=== PATIENT | female | born 1955 | race Caucasian/White ===

== ENCOUNTER 2018-12-18 16:02 | Emergency (ER) | payer BC ==
[2018-12-18 17:17] LABS: Absolute Lymphocytes (CBC) 3.3 K/uL (0.7-4.9); Absolute Monocytes 0.7 K/uL (0.1-1.3); Absolute Neutrophil 6.1 K/uL (1.8-8.0); Basophils % 0.6 % (0-1.3); Eosinophils % 1.6 % (0-4.4); Hematocrit 39.2 % (36.0-45.0); Lymphocytes % 32.4 % (15.3-44.8); MPV 8.3 fL (7.6-11.3); Monocytes % 6.3 % (3.3-12.3); RBC Red Blood Cell Count 4.22 M/uL (3.86-4.86)
[2018-12-18 17:34] LABS: ALT/SGPT 24 U/L (12-78); AST/SGOT 16 U/L (15-37); Albumin 3.9 g/dL (3.4-5.0); Alkaline Phosphatase 26 U/L (45-117); BUN Blood Urea Nitrogen 14 mg/dL (7-18); Bicarbonate 26 mmol/L (21-32); Bilirubin Direct 0.1 mg/dL (0-0.2); Bilirubin Total 0.5 mg/dL (0.2-1.0); Glucose Level 185 mg/dL (74-106); Lipase 411 U/L (73-393); Potassium 3.5 mmol/L (3.5-5.1); Protein, Total 7.4 g/dL (6.4-8.2); Sodium Level 140 mmol/L (136-145)
--- NOTE | 2018-12-18 18:07 | EDPHYS ---
Physician Documentation [facility] Name: Kennedi Castillo Age: 63 yrs Sex: Female : 1955 Arrival Date: 12/18/2018 Time: 16:06 Bed 18 Private MD: out of town, doctor ED Physician Carlos Turner HPI: 12/19 07:17 This 63 yrs old Female presents to ER via Wheelchair with complaints of Back kdr Pain. 07:17 The patient presents with abdominal pain in the epigastric area, in the upper abdomen. kdr The patient has chronic abdominal pain and pancreatitis. Has been seen by GI and was told to come to this ED to get a consult by Dr. Jasso. The patient has no new or concerning c/o at this time. She has had back pain but it has been associated/exacerbated by vomiting. She is in absolutely no acute distress and is unsure as to why she was sent to [facility] when all of her work has been done in [place]. Historical: - Allergies: 12/18 16:33 Keflex (Anaphylaxis); tw2 - Home Meds: 16:33 albuterol sulfate 90 mcg/actuation Inhl HFAA 1 puff every 4 hours [Active]; amlodipine tw2 5 mg tab 1 tab once daily [Active]; aspirin 81 mg Oral TbEC 1 tab once daily [Active]; carvedilol 3.125 mg oral tab 1 tab 2 times per day [Active]; Vitamin D Oral [Active]; conjugated estrogens oral oral [Active]; docusate sodium 100 mg Oral cap 1 cap once daily [Active]; duloxetine 30 mg oral cpDR 1 cap once daily [Active]; Lactobacillus acidophilus oral oral [Active]; lmlkwb-cbskozlp-juoztru oral oral [Active]; losartan 100 mg oral tab 1 tab once daily [Active]; metformin 500 mg Oral Tb24 1 tab once daily [Active]; mirtazapine 15 mg Oral TbDL 1 tab once daily [Active]; ondansetron HCl 8 mg Oral tab 1 tab every 8 hours [Active]; promethazine 25 mg Oral tab 1 tab once daily [Active]; - PMHx: 16:33 gastroporesis; Hypertension; Diabetes - NIDDM; tw2 - Immunization history:: Adult Immunizations. - Social history:: Smoking status: Smoking status: Patient uses tobacco products, smokes one pack cigarettes per day. - Ebola Screening: : Patient denies travel to an Ebola-affected area in the 21 days before illness onset. ROS: 12/19 07:17 Constitutional: Negative for fever, chills, and weight loss, Eyes: Negative for injury, kdr pain, redness, and discharge, ENT: Negative for injury, pain, and discharge, Neck: Negative for injury, pain, and swelling, Cardiovascular: Negative for chest pain, palpitations, and edema, Respiratory: Negative for shortness of breath, cough, wheezing, and pleuritic chest pain, : Negative for injury, bleeding, discharge, and swelling, MS/Extremity: Negative for injury and deformity, Skin: Negative for injury, rash, and discoloration, Neuro: Negative for headache, weakness, numbness, tingling, and seizure activity. Psych: Negative for depression, anxiety, suicide ideation, homicidal ideation, and hallucinations, Allergy/Immunology: Negative for hives, rash, and allergies, Endocrine: Negative for neck swelling, polydipsia, polyuria, polyphagia, and marked weight changes, Hematologic/Lymphatic: Negative for swollen nodes, abnormal bleeding, and unusual bruising. Abdomen/GI: Positive for abdominal pain, nausea and vomiting, Negative for constipation, abdominal cramps, abdominal distension, anorexia, dysphagia, hematemesis, black/tarry stool, rectal pain, rectal bleeding, bowel incontinence. Back: Positive for pain at rest, pain with movement, of the mid back area. Exam: 07:17 Constitutional: This is a well developed, well nourished patient who is awake, alert, kdr and in no acute distress. Head/Face: Normocephalic, atraumatic. Eyes: Pupils equal round and reactive to light, extra-ocular motions intact. Lids and lashes normal. Conjunctiva and sclera are non-icteric and not injected. Cornea within normal limits. Periorbital areas with no swelling, redness, or edema. Neck: Trachea midline, no thyromegaly or masses palpated, and no cervical lymphadenopathy. Supple, full range of motion without nuchal rigidity, or vertebral point tenderness. No Meningismus. Chest/axilla: Normal chest wall appearance and motion. Nontender with no deformity. No lesions are appreciated. Cardiovascular: Regular rate and rhythm with a normal S1 and S2. No gallops, murmurs, or rubs. Normal PMI, no JVD. No pulse deficits. Respiratory: Lungs have equal breath sounds bilaterally, clear to auscultation and percussion. No rales, rhonchi or wheezes noted. No increased work of breathing, no retractions or nasal flaring. Skin: Warm, dry with normal turgor. Normal color with no rashes, no lesions, and no evidence of cellulitis. MS/ Extremity: Pulses equal, no cyanosis. Neurovascular intact. Full, normal range of motion. Neuro: Awake and alert, GCS 15, oriented to person, place, time, and situation. Cranial nerves II-XII grossly intact. Motor strength 5/5 in all extremities. Sensory grossly intact. Cerebellar exam normal. Normal gait. Psych: Awake, alert, with orientation to person, place and time. Behavior, mood, and affect are within normal limits. 07:17 Abdomen/GI: Bowel sounds: normal, Palpation: soft, mild abdominal tenderness, in the epigastric area, right upper quadrant and left upper quadrant, mass, is not appreciated, rebound tenderness, is not appreciated, voluntary guarding, is not appreciated, involuntary guarding, is not appreciated. Vital Signs: 12/18 16:34 BP 158 / 71; Pulse 87; Resp 18; Temp 97(TE); Pulse Ox 97% on R/A; Weight 58.38 kg (M); tw2 Pain 10/10; 18:10 BP 148 / 70; Pulse 78; Resp 20; Temp 98.0(O); Pulse Ox 99% on R/A; Pain 3/10; ls4 MDM: 18:06 Patient medically screened. kdr 12/19 07:17 Data reviewed: vital signs, lab test result(s). Counseling: I had a detailed discussion kdr with the patient and/or guardian regarding: the historical points, exam findings, and any diagnostic results supporting the discharge/admit diagnosis, lab results, the need for outpatient follow up. ED course: The patient will follow-up with GI to see why she was sent to this ED especially since Dr. Jasso could see her in [facility]. 12/18 16:59 Order name: Basic Metabolic Panel; Complete Time: 17:47 kdr 12/18 16:59 Order name: CBC with Diff; Complete Time: 17:47 kdr 12/18 16:59 Order name: Creatinine for Radiology; Complete Time: 17:47 kdr 12/18 16:59 Order name: Hepatic Function; Complete Time: 17:47 kdr 12/18 16:59 Order name: Lipase; Complete Time: 17:47 kdr 12/18 16:59 Order name: IV Saline Lock; Complete Time: 17:20 kdr 12/18 16:59 Order name: Labs collected and sent; Complete Time: 17:20 kdr Administered Medications: No medications were administered Disposition: 12/18/18 18:06 Discharged to Home. Impression: Abdominal and pelvic pain, Hyperglycemia, unspecified. - Condition is Stable. - Discharge Instructions: Abdominal Pain, Adult, Gqhn-st-Egbs, Blood Glucose Monitoring, Adult, Hyperglycemia, Wnlh-zw-Txip. - Prescriptions for Tylenol- Codeine #3 300-30 mg Oral Tablet - take 2 tablets by ORAL route every 6 hours As needed; 12 tablet. Zofran 4 mg Oral Tablet - take 1 tablet by ORAL route every 4-6 hours As needed; 12 tablet. - Medication Reconciliation Form, Thank You Letter, Prescription Opioid Use form. - Follow up: Private Physician; When: 2 - 3 days; Reason: If symptoms return, Further diagnostic work-up, Recheck today's complaints, Continuance of care, Re-evaluation by your physician. - Problem is chronic. - Symptoms are unchanged. Signatures: Dispatcher [employer] EDMS Carlos Turner MD MD kdr Bernadine Davis RN RN tw2 Dot Cardenas RN RN ls4 Corrections: (The following items were deleted from the chart) 12/18 18:27 18:06 12/18/2018 18:06 Discharged to Home. Impression: Abdominal and pelvic pain; ls4 Hyperglycemia, unspecified. Condition is Stable. Forms are Medication Reconciliation Form, Thank You Letter, Antibiotic Education, Prescription Opioid Use. Follow up: Private Physician; When: 2 - 3 days; Reason: If symptoms return, Further diagnostic work-up, Recheck today's complaints, Continuance of care, Re-evaluation by your physician. Problem is chronic. Symptoms are unchanged. kdr
--- NOTE | 2018-12-18 18:07 | ER ---
Nurse's Notes [facility] Name: Kennedi Castillo Age: 63 yrs Sex: Female : 1955 Arrival Date: 12/18/2018 Time: 16:06 Bed 18 Private MD: out of town, doctor Diagnosis: Abdominal and pelvic pain;Hyperglycemia, unspecified Presentation: 12/18 16:26 Presenting complaint: Patient states: i just go discharged after a 4 day stay tw2 at [facility], dr. bal is my GI dr, i was making my f/u appt with him and i was telling them about this palsey walk since i got discharged from the hospital, and he told me to come here to consult with dr. Jasso, i have pancreatitis gallbladder diakineses, i am having back pain since i left there. Transition of care: patient was not received from another setting of care. Onset of symptoms was December 18, 2018. Risk Assessment: Do you want to hurt yourself or someone else? Patient reports no desire to harm self or others. Initial Sepsis Screen: Does the patient meet any 2 criteria? No. Patient's initial sepsis screen is negative. Does the patient have a suspected source of infection? No. Patient's initial sepsis screen is negative. Care prior to arrival: None. 16:26 Method Of Arrival: Wheelchair tw2 16:26 Acuity: MARIA L 3 tw2 Triage Assessment: 16:34 General: Appears in no apparent distress. Behavior is cooperative, appropriate for age. tw2 Pain: Complains of pain in back. Musculoskeletal: Range of motion: intact in all extremities. Historical: - Allergies: 16:33 Keflex (Anaphylaxis); tw2 - Home Meds: 16:33 albuterol sulfate 90 mcg/actuation Inhl HFAA 1 puff every 4 hours [Active]; amlodipine tw2 5 mg tab 1 tab once daily [Active]; aspirin 81 mg Oral TbEC 1 tab once daily [Active]; carvedilol 3.125 mg oral tab 1 tab 2 times per day [Active]; Vitamin D Oral [Active]; conjugated estrogens oral oral [Active]; docusate sodium 100 mg Oral cap 1 cap once daily [Active]; duloxetine 30 mg oral cpDR 1 cap once daily [Active]; Lactobacillus acidophilus oral oral [Active]; dmhmnz-nfcxkaue-njcbjtn oral oral [Active]; losartan 100 mg oral tab 1 tab once daily [Active]; metformin 500 mg Oral Tb24 1 tab once daily [Active]; mirtazapine 15 mg Oral TbDL 1 tab once daily [Active]; ondansetron HCl 8 mg Oral tab 1 tab every 8 hours [Active]; promethazine 25 mg Oral tab 1 tab once daily [Active]; - PMHx: 16:33 gastroporesis; Hypertension; Diabetes - NIDDM; tw2 - Immunization history:: Adult Immunizations. - Social history:: Smoking status: Smoking status: Patient uses tobacco products, smokes one pack cigarettes per day. - Ebola Screening: : Patient denies travel to an Ebola-affected area in the 21 days before illness onset. Screenin:46 Abuse screen: Denies threats or abuse. Denies injuries from another. Nutritional ls4 screening: No deficits noted. Tuberculosis screening: No symptoms or risk factors identified. Fall Risk None identified. Assessment: 16:56 General: Appears in no apparent distress. Behavior is cooperative, anxious. Neuro: ls4 Oriented to person, place, time, situation, Roll Slicing Machine Tender are equal bilaterally Moves all extremities. Gait is shuffling, Speech is normal, Facial symmetry appears normal, Pupils are PERRLA, Intact Babinski Reports weakness in right leg and left leg. Cardiovascular: Denies chest pain, syncope, Capillary refill < 3 seconds. Respiratory: Airway is patent Respiratory effort is even, unlabored. GI: Reports GASTROPARESIS AND PANCREATITIS. PT STATES THIS IS IMPROVED SINCE RECENT HOSPITALIZATION IN [place]. Musculoskeletal: Circulation, motion, and sensation intact. Capillary refill < 3 seconds, Range of motion: intact in all extremities. Vital Signs: 16:34 BP 158 / 71; Pulse 87; Resp 18; Temp 97(TE); Pulse Ox 97% on R/A; Weight 58.38 kg (M); tw2 Pain 10/10; 18:10 BP 148 / 70; Pulse 78; Resp 20; Temp 98.0(O); Pulse Ox 99% on R/A; Pain 3/10; ls4 ED Course: 16:06 Patient arrived in ED. dl4 16:06 out of town, doctor is Private Physician. dl4 16:28 Triage completed. tw2 16:28 Arm band placed on. tw2 16:35 Dot Cardenas, RN is Primary Nurse. ls4 16:46 Bed in low position. Call light in reach. Side rails up X 1. Warm blanket given. Verbal ls4 reassurance given. Diet: Patient is NPO. 16:56 No provider procedures requiring assistance completed. ls4 16:58 Carlos Turner MD is Attending Physician. kdr 17:02 Inserted saline lock: 20 gauge in right antecubital area, using aseptic technique. ls4 Blood collected. 18:26 IV discontinued, intact, bleeding controlled, No redness/swelling at site. Pressure ls4 dressing applied. Administered Medications: No medications were administered Outcome: 18:06 Discharge ordered by . kdr 18:24 Discharged to home ambulatory, with family. ls4 18:24 Condition: stable 18:24 Discharge instructions given to patient, family, Instructed on discharge instructions, follow up and referral plans. no drinking with medication, no driving heavy equipment, medication usage, safety practices, Demonstrated understanding of instructions, follow-up care, medications. 18:27 Patient left the ED. ls4 Signatures: Carlos Turner MD MD kdr Bernadine Davis, RN RN tw2 Dot Cardenas, RN RN ls4 Skyler Lomax dl4
== END 2018-12-18 18:27 | disposition home or self-care (01) ==
LOC: ER 16:02
DX: E11.65 Type 2 diabetes mellitus with hyperglycemia (principal); I10 Essential (primary) hypertension; F17.210 Nicotine dependence, cigarettes, uncomplicated; Z79.4 Long term (current) use of insulin; Z79.82 Long term (current) use of aspirin
CPT/HCPCS: 36415; 80048; 80076; 83690; 85025; 99283

== ENCOUNTER 2020-11-19 06:32 | Day surgery (SDC) | payer MEDICARE ==
[2020-11-18 15:50] LABS: Absolute Lymphocytes (CBC) 1.4 K/uL (0.7-4.9); Basophils % 0.5 % (0-1.3); Hematocrit 26.5 % (36.0-45.0); Lymphocytes % 13.5 % (15.3-44.8); MPV 8.6 fL (7.6-11.3); RBC Red Blood Cell Count 3.04 M/uL (3.86-4.86)
[2020-11-18 16:10] LABS: BUN Blood Urea Nitrogen 14 mg/dL (7-18); Bicarbonate 32 mmol/L (21-32); Glucose Level 249 mg/dL (74-106); Potassium 4.5 mmol/L (3.5-5.1); Sodium Level 136 mmol/L (136-145)
--- OUTSIDE RECORDS SUMMARY | 2020-11-19 06:36 | XMS REPORT | Clinical Summary ---
:1955 Author Organization [facility] Address [address] [place] [address] Care Team Providers Name Role Phone Yanelis Llanes MD Primary Care Provider [phone] Allergies Active Allergy Reactions Severity Noted Date Comments Cephalexin Other (See Comments) 03/03/2015 Codeine Itching 03/03/2015 Fentanyl Other (See Comments) 03/11/2019 Patient states, " It makes me fee ls like ." Levofloxacin Anaphylaxis High 09/24/2015 When taken with a medrol dose eduarda Methylprednisolone Anaphylaxis High 09/24/2015 When take n with levaquin Nicorette Ds Anaphylaxis High 06/21/2019 Nsaids (Non-Steroidal Other (See Comments) 03/03/2015 Anti-Inflammatory Drug) Nylon Rash Low 06/09/2019 Nylon tape Medications Medication Sig Dispensed Refills Start Date End Date Status MULTIVITAMIN ORAL Take 1 tablet 0 Active by mouth. cholecalciferol, Take 1 capsule 0 Active vitamin D3, by mouth. (VITAMIN D3) 2,000 unit capsule capsule DULoxetine Take 30 mg by 3 03/03/2019 Acti ve (CYMBALTA) 30 MG mouth daily. capsule pyridoxine, Take 20 mg by 0 Acti ve vitamin B6, mouth. (vitamin B-6) 100 MG tablet metFORMIN TAKE 2 TABLETS 5 03/10/2019 Acti ve (GLUCOPHAGE) 500 BY MOUTH TWICE mg tablet DAILY WITH FOOD mirtazapine nightly. 3 01/15/2019 Active (REMERON) 15 MG tablet omeprazole Take 40 mg by 3 03/10/2019 Acti ve (PriLOSEC) 40 MG mouth 2 (two) capsule times a day. ondansetron every 8 (eight) 0 12/18/2018 A ctive (ZOFRAN) 4 MG hours as tablet needed. dicyclomine Take 20 mg by 1 04/16/2019 Act frannie (BENTYL) 20 mg mouth 3 (three) tablet times a day as needed. cyanocobalamin, Take by mouth. 0 Active vitamin B-12, 5,000 mcg tablet, IR & ER, biphasic pen needle, Use daily as 100 each 1 06/15/2019 Acti ve diabetic (BD instructed ULTRA-FINE SHORT PEN NEEDLE) 31 gauge x 5/16" needle blood-glucose Use as 1 each 0 06/15/2019 Activ e meter (ONETOUCH instructed VERIO SYSTEM) misc three times daily blood sugar Use as 200 strip 1 06/15/2019 Active diagnostic strips instructed (glucose blood) strip test strips lancets misc Use as 200 each 1 06/15/2019 Active instructed traZODone Take 50 mg by 3 07/18/2019 Activ e (DESYREL) 50 MG mouth nightly. tablet furosemide (LASIX) Take 40 mg by 0 06/24/2019 Active 40 mg tablet mouth. Lantus Solostar INJECT 15 UNITS 12 mL 3 03/04/2020 Active U-100 Insulin 100 UNDER THE SKIN unit/mL injection NIGHTLY (pen)Indications: Type 2 diabetes mellitus without complication, with long-term current use of insulin (HCC) Lantus Solostar INJECT 15 UNITS 12 mL 5 02/13/2020 Active U-100 Insulin 100 UNDER THE SKIN unit/mL injection NIGHTLY (pen)Indications: Type 2 diabetes mellitus without complication, with long-term current use of insulin (HCC) aspirin 325 MG Take 1 tablet 30 tablet 06/16/2019 tablet (325 mg total) 0 by mouth daily. atorvastatin Take 1 tablet 30 tablet 06/15/2019 Ex pired (LIPITOR) 80 MG (80 mg total) 0 tablet by mouth nightly. metoprolol Take 1 tablet 60 tablet 06/15/2019 Expi red tartrate (25 mg total) 0 (LOPRESSOR) 25 mg by mouth 2 tablet (two) times a day. ramipril (ALTACE) Take 1 capsule 30 capsule 06/15/201906/14 5 MG capsule (5 mg total) by 0 mouth nightly. potassium chloride Take 2 capsules 120 capsule 11 06/15/2019 (MICRO-K) 10 MEQ (20 mEq total) 0 CR capsule by mouth 2 (two) times a day. insulin GLARGINE Inject 15 Units 5 pen 0 09/26/2019 Discontinued (LANTUS SOLOSTAR under the skin 0 U-100 INSULIN) 100 nightly. unit/mL injection (pen)Indications: Type 2 diabetes mellitus without complication, with long-term current use of insulin (HCC) Active Problems Problem Noted Date Controlled type 2 diabetes mellitus with circulatory d isorder, with 06/11/2019 long-term current use of insulin History of coronary artery disease 06/11/2019 NSTEMI (non-ST elevated myocardial infarction) 019 Coronary artery disease involving sh[place]annock coronary jayson ry of shoshone[place]bannock heart 06/01/2019 with angina pectoris Overview: Added automatically from request for janis perea [id number] Acute diarrhea 05/09/2019 Smoking 05/09/2019 Abdominal pain 04/23/2019 Pain of upper abdomen 03/21/2019 Chronic pancreatitis 03/21/2019 Dilated bile duct 03/21/2019 Diverticulosis of intestine without bleeding 9 Type 2 diabetes mellitus Pancreatitis Myocardial infarction Hypertension GERD (gastroesophageal reflux disease) COPD (chronic obstructive pulmonary disease) Arthritis PONV (postoperative nausea and vomiting) Encounters Date Type Specialty Care Team Description 02/09/2020 Refill Endocrinology Tatiana Claudio MD Type 2 diabetes mellitus without complication, w ith long-term current use of insulin ([facility]) 02/04/2020 Refill Endocrinology Tatiana Claudio MD Type 2 diabetes mellitus without complication, w ith long-term current use of insulin ([facility]) after 11/19/2019 Surgical History Surgery Date Site/Laterality Comments APPENDECTOMY ESOPHAGOGASTRODUODENOSCOPY (EGD) 03/27/2019 N/A Procedure: EGD W/ BIOPSIES; Surge on: Cheyenne Nice MD; Location: [facility] ENDOSCOPY; Serv ice: Gastroenterology ; Laterality: N/A; US UPPER GI TRACT, ENDOSCOPIC 03/27/2019 N/A Pr ocedure: US UPPER GI TRACT, ENDOSC OPIC; Surgeon: Cheyenne Nice MD; Location: [facility] END[facility]COPY; Serv ice: Gastroenterology ; Laterality: N/A; ERCP WITH FLUORO 04/23/2019 N/A Procedure: ERCP WITH FLUORO with sphincterotomy, balloon sweep, pancreatic stent placement; Surg leonel: Cheyenne Nice MD; Location: [facility] ENDOSCOPY; Serv ice: Gastroenterology ; Laterality: N/A; Lot dye #: [id number] Medical devices from this surgery are in the Implants sec tion. CARDIAC CATHETERIZATION 06/02/2019 N/A Procedur e: Selective coronary angiogr aphy; Surgeon: Fredy Bazan MD; Location: [facility] Invasive Location; Servi ce: Cardiology; Laterality: N/A; CARDIAC CATHETERIZATION 06/02/2019 N/A Procedur e: Ivus coronary; Surge on: Fredy Bazan MD; Location: [facility] Invasive Location; Servi ce: Cardiology; Laterality: N/A; CABG, WITH ENDOSCOPIC VEIN HARVESTING 06/09/2019 Chest/N/A Procedure: CABG X 2 (MAE TO LAD, SVG TO OM) WITH ENDOSCOPIC VEIN HARVESTING; Surgeon: David Javier MD; Location: [facility]; Service: Cardiothoracic; Laterality: N/A; 10:00 AM RQ - CABG W/EVH CPT 03906, 43475 , 97304 STS ON 06/02/19 Medical devices from this surgery are in the Implants section. Medical History Medical History Date Comments Arthritis Type 2 diabetes mellitus (HCC) GERD (gastroesophageal reflux disease) Cataract COPD (chronic obstructive pulmonary disease) (HCC) Hypertension Pancreatitis PONV (postoperative nausea and vomiting) Myocardial infarction (HCC) Family History Medical History Relation Name Comments Colon cancer Neg Hx Colon polyps Neg Hx Social History Tobacco Use Types Packs/Day Years Used Date Current Every Day Smoker 1 Smokeless Tobacco: Never Used Alcohol Use Drinks/Week oz/Week Comments Not Currently Sex Assigned at Date Recorded Not on file Last Filed Vital Signs Not on file Plan of Treatment Health Maintenance Due Date Last Done Comments DIABETES: RETINAL EYE EXAM 1964 DIABETIC FOOT EXAM 1964 URINE MICROALBUMIN 1964 COVID-19 VACCINE (1 of 2) 1970 BREAST CANCER SCREENING 2004 COLONOSCOPY SCREENING 2004 65+ PNEUMOCOCCAL VACCINE (1 of 1 - 2019 04/23/2018 PPSV23) INFLUENZA VACCINE 05/15/2020 SHINGLES VACCINES Completed 11/25/2018, 08/15/2018 HEPATITIS C SCREENING Completed 06/06/2019, 06/04/2019, 06/04/2019 Implants Implanted Type Area Cracking Unit Operator Device Shelf Model / Identifier Expiration Serial / Date Lot Lead Pace Thomas Mycrdl Unipol Tmpry Streamline - [id number] Cardi ac Pacing N/A: [employer] 02/17/2021 [id number] / Implanted: Qty: 1 on 06/09/2019 by David Mills MD at [facility] Leads or N/A CARDIOVASCULAR / Electrodes or Accessories Lead Pace Thomas Mycrdl Unipol Tmpry Streamline - [id number] Cardi ac Pacing N/A: [employer] 02/17/2021 [id number] / Implanted: Qty: 1 on 06/09/2019 by David Mills MD at [facility] Leads or N/A CARDIOVASCULAR / Electrodes or Accessories Clip Ligtng Dionisiock Hemoclip Plus W/ Tape Ti Lg - [id number] Medica l Clips N/A: [employer] 12/09/2023 [id number] / Implanted: Qty: 1 on 06/09/2019 by David Mills MD at [facility] for Internal N/A / Use Stent Pncrtc Geenen Soft Flex 5fr 3cm W/No Intrnl Flap - Log [id number] Surgical N/A: [facility] 02/12/2022 [id number] / Implanted: 04/23/2019 at [facility] (Quantity not on file) Stents N/A / [id number] [place] Perp Vasclr Ptfe 1.2x10cm 1.65mm - [id number] Vascular Gra ft N/A: BARD PERIPHERAL 03/11/2024 [id number] / Implanted: 06/09/2019 at [facility] (Quantity not on file) N/A VASCULAR / [id number] [place] Perp Vasclr Ptfe 1.2x10cm 1.65mm - [id number] Vascular Gra ft N/A: BARD PERIPHERAL 02/10/2024 [id number] / Implanted: 06/09/2019 at [facility] (Quantity not on file) N/A VASCULAR / [id number] Results Not on fileafter 11/19/2019 Advance Directives For more information, please contact: [phone] Type Date Recorded Patient Color Matcher Explanati on Advance Directives, Living Will and Medical Power of Neon Tube Pumper
--- OUTSIDE RECORDS SUMMARY | 2020-11-19 06:38 | XMS REPORT | Continuity of Care Document ---
:1955 Author Organization [facility] t Address [address] [place] [address] Care Team Providers Name Role Phone Shraddha BLAS, A Primary Care Physician SYSTEM, NOT IN Attending Clinician Unavailable Bazan DO Attending Clinician Shraddha LBAS, A Attending Clinician Kayode BLAS, C Attending Clinician Alize FARNSWORTH Attending Clinician Unavailable WHITE Attending Clinician Unavailable González BLAS Attending Clinician LY Attending Clinician Unavailable BEBLAZE, R Admitting Clinician Unavailable WHITE Admitting Clinician Unavailable LY Admitting Clinician Unavailable Payers Payer Name Policy Type Policy Effective Date Expiration Date Sour ce Number BCBSBCBS CHOICE [id number] 2018 [facility] [id number] 2018-Prese ntPPO Problems Condition Condition Condition Status Onset Resolution Last Treating Co mments Source Name Details Category Date Date Treatment Clinician Date Asthenia Asthenia [facility] (LUF/LI V/SA) Dyspnea Dyspnea Problem [facility] (LUF/LI V/SA) Nausea and Nausea and Problem Active [facility] vomiting [facility] (LUF/LI V/SA) History of History of Disease Active H latasha coronary coronary 8 Method i artery artery 00:00: st disease disease 00 Coronary Coronary Disease Active Overview: [place] artery artery 818 Added Methodi disease disease 00:00: automatic st involving involving 00 [place] coronary coronary for artery of artery of surgery [place] [phone] heart with heart with angina angina pectoris pectoris Acute Acute Disease Active [place] diarrhea diarrhea 7- Method i 00:00: st 00 Smoking Smoking Disease Active [place] 7 Methodi 00:00: st 00 Abdominal Abdominal Disease Active Clementina ston pain pain 7-10 Methodi 00:00: st 00 Pain of Pain of Disease Active [place] upper upper 6-07 Methodi abdomen abdomen 00:00: st 00 Chronic Chronic Disease Active [place] pancreatit pancreatit 6-07 Me thodi is is 00:00: st 00 Dilated Dilated Disease Active [place] bile duct bile duct 6-07 Meth theresa 00:00: st 00 Diverticul Diverticul Disease Active H latasha osis of osis of 6-07 Methodi intestine intestine 00:00: st without without 00 bleeding bleeding Type 2 Type 2 Disease Active [place] diabetes diabetes Method i mellitus mellitus st Pancreatit Pancreatit Disease Active H latasha is is Methodi st Myocardial Myocardial Disease Active [facility] infarction infarction Me thodi st Hypertensi Hypertensi Disease Active latasha on on Methodi st GERD GERD Disease Active [place] (gastroeso (gastroeso Me odi phageal phageal st reflux reflux disease) disease) COPD COPD Disease Active [place] (chronic (chronic Method i obstructiv obstructiv st e e pulmonary pulmonary disease) disease) Arthritis Arthritis Disease Active Clementina ston Methodi st PONV PONV Disease Active [place] (postopera (postopera Me thodi tive tive st nausea and nausea and vomiting) vomiting) Allergies, Adverse Reactions, Alerts Allergy Allergy Status Severity Reaction(s) Onset Inactive Treating Comm ents Source Name Type Date Date Clinician Guillaume Propensi Active Anaphylaxis Rojelio Fernando ty to 06-21 Methodi adverse 00:00: st reaction 00 s to drug Nylon Propensi Active Rash Nylon [place] ty to 06-09 tape Methodi adverse 00:00: st reaction 00 s to drug Fentanyl Propensi Active Other (See Patient Rojelio pagan ty to Comments) 03-11 states, " Meth theresa adverse 00:00: It makes st reaction 00 me feels s to like drug ." Levoflox Propensi Active Anaphylaxis 2014-10 When Rojelio pagan acin ty to 11-25 taken Methodi adverse 00:00: with a st reaction 00 medrol s to dose eduarda drug Methylpr Prop[place]i Active Anaphylaxis 2014-10 When Rojelio pagan ednisolo ty to 11-25 taken Methodi ne adverse 00:00: with st reaction 00 levaquin s to drug Cephalex [place]i Active Other (See [place] in ty to Comments) 03-03 Methodi adverse 00:00: st reaction 00 s to drug Codeine [place] Active Itching [place] ty to 03-03 Methodi adverse 00:00: st reaction 00 s to drug Nsaids [place]i Active Other (See [place] (Non-Cameron ty to Comments) 5 Metho di roidal adverse 00:00: st Anti-Inf reaction 00 lammator s to y Drug) drug Family History Family Member Diagnosis Comments Start Date Stop Date Source [facility] Social History Social Habit Start Date Stop Date Quantity Comments Source [facility] C[facility] smoked 2019-07-21 2019-07-21 Ajay Pereiraist current (pack per 00:00:00 00:00:00 day) - Reported Tobacco use and 2019-07-21 2019-07-21 Never used [facility] ethodist exposure 00:00:00 00:00:00 Alcohol intake 2019-07-21 2019-07-21 Ex-drinker [facility] thodist 00:00:00 00:00:00 (finding) Smoking Status Start Date Stop Date Source Current some day smoker [facility] (LUF/CHANDA/SA) Current every day smoker 2019-07-21 00:00:00 Clementina Dominique Medications Ordered Filled Start Stop Current Ordering Indication Dosage Frequency Signature Comments Components Source Medication Medication Date Date Medication? Clinician (SIG) Name Name Lantus Yes Type 2 INJECT 15 [place] Solostar 5-21 diabetes UNITS Method i U-100 00:00: mellitus UNDER THE st Insulin 100 00 without SKIN unit/mL complicatio NIGHTLY injection n, with (pen) long-term current use of insulin (HCC) Lantus Yes Type 2 INJECT 15 [place] Solostar 5-01 diabetes UNITS Method i U-100 00:00: mellitus UNDER THE st Insulin 100 00 without SKIN unit/mL complicatio NIGHTLY injection n, with (pen) long-term current use of insulin ([facility]) insulin 2018-10 2020- No Type 2 15U QD Inject 15 [place] GLARGINE 11-27-01 diabetes Units Metho di (LANTUS 00:00: 00:[address] SOLOSTAR 00 :00 without skin U-100 complicatio nightly. INSULIN) n, with 100 unit/mL long-term injection current use (pen) of insulin ([facility]) MULTIVITAMI 2018-10 Yes 1{tbl} Take 1 [place] N ORAL 0-07 tablet by Methodi 10:55: mouth. st 30 cholecalcif 2018-10 Yes 1{capsu Take 1 [place] julian, 0-07 le} capsule by Methodi vitamin D3, 10:55: mouth. st (VITAMIN 30 D3) 2,000 unit capsule capsule pyridoxine, 2018-10 Yes 20mg Take 20 mg [place] vitamin B6, 0-07 by mouth. Met hodi (vitamin 10:55: st B-6) 100 MG 30 tablet cyanocobala 2018-10 Yes Take by Clementina garcia min, 0-07 mouth. Methodi vitamin 10:55: st B-12, 5,000 30 mcg tablet, IR & ER, biphasic traZODone 2018-10 Yes 50mg QD Take 50 mg [place] (DESYREL) 0-04 by mouth Method i 50 MG 00:00: nightly. st tablet 00 furosemide Yes 40mg Take 40 mg [place] (LASIX) 40 06-24 by mouth. Meth theresa mg tablet 00:00: st 00 aspirin 325 2020- No 325mg QD Take 1 [place] MG tablet 06-16 tablet Methodi 00:00: 23:59 ([address] 00 :00 total) by mouth daily. pen needle, Yes Use daily [place] diabetic 06-15 as Methodi (BD 00:00: instructed st ULTRA-FINE 00 SHORT PEN NEEDLE) 31 gauge x 5/16" needle blood-gluco Yes Use as [place] se meter 06-15 instructed Metho di (ONETOUCH 00:00: three st VERIO 00 times SYSTEM) daily misc blood sugar Yes Use as [place] diagnostic 06-15 instructed Met hodi strips 00:00: st (glucose 00 blood) strip test strips lancets Yes Use as [place] misc 06-15 instructed Methodi 00:00: st 00 atorvastati 2019- No 80mg QD Take 1 Clementina ston n (LIPITOR) 06-15 tablet (80 M ethodi 80 MG 00:00: 23:59 mg total) st tablet 00 :00 by mouth nightly. metoprolol 2020- No 25mg Q.5D Take 1 [place] tartrate 06-15 tablet (25 Meth theresa (LOPRESSOR) 00:00: 23:59 mg total) st 25 mg 00 :00 by mouth 2 tablet (two) times a day. ramipril 2019- No 5mg QD Take 1 [place] (ALTACE) 5 06-15 capsule (5 Me thodi MG capsule 00:00: 23:59 mg total) s t 00 :00 by mouth nightly. potassium 2020- No 20meq Q.5D Take 2 [place] chloride 06-15 capsules Method i (MICRO-K) 00:00: 23:59 ([address] 10 MEQ CR 00 :00 total) by capsule mouth 2 (two) times a day. dicyclomine Yes 20mg [id number] Take 20 mg [place] (BENTYL) 20 04-16 [id number] by mouth 3 Methodi mg tablet 00:00: 3D (three) st 00 times a day as needed. metFORMIN Yes TAKE 2 [place] (GLUCOPHAGE 5-27 TABLETS BY Ga coleen ) 500 mg 00:00: MOUTH st tablet 00 TWICE DAILY WITH FOOD omeprazole 2018-0 Yes 40mg Q.5D Take 40 mg [place] (PriLOSEC) 5-27 by mouth 2 Met hodi 40 MG 00:00: (two) st capsule 00 times a day. DULoxetine Yes 30mg QD Take 30 mg [place] (CYMBALTA) 5-20 by mouth Metho di 30 MG 00:00: daily. st capsule 00 mirtazapine 2018-0 Yes QD nightly. [place] (REMERON) 4-03 Methodi 15 MG 00:00: st tablet 00 ondansetron 2018-0 Yes Q8H every 8 Clementina garcia (ZOFRAN) 4 3-06 (eight) Method i MG tablet 00:00: hours as st 00 needed. Acetaminoph Acetaminoph Yes [address] [facility] en 300 MG / en 300 MG / every 4 to [facility] - Codeine Codeine 6 hours as Mem oria Phosphate Phosphate needed. l 30 MG Oral 30 MG Oral (as needed (LUF/LI Tablet Tablet for pain) V/SA) Aspirin Aspirin Yes 81mg 1xD orally [facility] daily [facility] - Memoria l (LUF/LI V/SA) atorvastati atorvastati Yes 80mg orally [facility] n 80 MG n 80 MG every day Luke s - Oral Tablet Oral Tablet at bedtime Memoria l (LUF/LI V/SA) B B Yes [address] Complex-Vit Complex-Vit once L ukes - [place] B12 [place] B12 Memoria l (LUF/LI V/SA) Doxycycline Doxycycline Yes 100mg 2xD orally [address] [facility] Monohydrate Monohydrate times per [facility] - Oral Oral day Memoria l (LUF/LI V/SA) duloxetine duloxetine Yes 30mg 1xD orally [facility] 30 MG 30 MG daily [facility] - Delayed Delayed Memoria Release Release l Oral Oral (LUF/LI Capsule Capsule V/SA) Furosemide Furosemide Yes 40mg 1xD orally [facility] 40 MG Oral 40 MG Oral daily Dharmesh kes - Tablet Tablet Memoria l (LUF/LI V/SA) Magnesium Magnesium Yes 400mg 2xD orally [address] [facility] Oxide Oxide times per [facility] - day Memoria (Ordered l Dose: of (LUF/LI magnesium V/SA) oxide) Metoprolol Metoprolol Yes 12.5mg 1xD orally [facility] Oral 24 hr Oral 24 hr daily Dharmesh kes - Tab Tab Memoria (Succinate) (Succinate) l (LUF/LI V/SA) Omeprazole Omeprazole Yes 40mg 2xD orally [address] [facility] 40 MG 40 MG times per [facility] - Delayed Delayed day Memoria Release Release l Oral Oral (LUF/LI Capsule Capsule V/SA) Potassium Potassium Yes 20meq 2xD orally [address] [facility] Chloride Chloride times per Dharmesh kes - day Memoria l (LUF/LI V/SA) Ramipril Ramipril Yes 10mg 1xD orally [facility] daily [facility] - Memoria l (LUF/LI V/SA) Trazodone Trazodone Yes 100mg orally [facility] Hydrochlori Hydrochlori every day [facility] - de 100 MG de 100 MG at bedtime Memoria Oral Tablet Oral Tablet l (LUF/LI V/SA) Vitamin B6 Vitamin B6 Yes 100mg 1xD orally [facility] 100 MG Oral 100 MG Oral daily [facility] - Tablet Tablet Memoria l (LUF/LI V/SA) Procedures This patient has no known procedures. Plan of Care Planned Activity Planned Date Details Comments Source Future Scheduled 2020-05-15 [facility]ACCINE [facility] 00:00:00 [code = INFLUENZA VACCINE] Future Scheduled 2019 65+ PNEUMOCOCCAL [place] [facility] Test 00:00:00 VACCINE (1 of 1 - PPSV23) [code = 65+ PNEUMOCOCCAL VACCINE (1 of 1 - PPSV23)] Future Scheduled [facility] S[facility]EN[facility] [code = BREAST CANCER SCREENING] Future Scheduled 2004 COLONOSCOPY SCREENING [facility] Test 00:00:00 [code = COLONOSCOPY SCREENING] Future Scheduled 1970 [facility] 00:00:00 2) [code = COVID-19 VACCINE (1 of 2)] Future Scheduled 1964 DIABETES: RETINAL EYE [place] [facility] Test 00:00:00 EXAM [code = DIABETES: RETINAL EYE EXAM] Future Scheduled 1964 DIABETIC FOOT EXAM [place] [facility] 00:00:00 [code = DIABETIC FOOT EXAM] Future Scheduled 1964 URINE MICROALBUMIN [place] [facility] 00:00:00 [code = URINE MICROALBUMIN] Encounters Start End Encounter Admission Attending Care Care Encounter Source Date/Time Date/Time Type Type Clinicians Facility Department ID 2020-10-21 Outpatient SYSTEM, [facility] [id number] 08:45:51 PROVIDER Tony o diana 2020-11-11 2020-11-11 Telemben Bazan [facility] [id number] 11:46:04 12:16:04 ne Visit Joce Bangura [id number] [place] [id number] Professio [phone] [address] 2020-11-10 2020-11-10 Telephone Shraddha GAANNA MARIE [id number] 00:00:00 00:00:00 Yanelis Bangura [id number] [place] [id number] Professio [phone] [address] 2020-11-09 2020-11-09 Telemalfi Shraddha [facility] [id number] 08:22:37 12:14:52 ne Visit Yanelis Bangura [id number] [place] [id number] Professio [phone] [address] 2020-11-08 2020-11-08 Telephone Kayode [facility] [id number] 00:00:00 00:00:00 Renzo GARCIAPEC [id number] [place] [id number] CENTER [phone] [facility] 2020-09-07 2020-09-07 PAIN IN 3 NETO FRANZ [place] [id number] [facility] 11:17:00 23:59:00 RIGHT HAND [facility], [facility] [address] [facility] SEKOU (DHARMESHF/TAMMY DOYLE, V/SA) [place] [address] Results Test Description Test Time Test Comments Results Result Comments Source GLYCOSALATED HEMOGLOBIN 2020-09-20 11:05:00 Test Item Value Reference Range Interpretation Comme nts Hemoglobin A1C (test code = 7.7 % 4.2-6.3 A GLYCO) Mean Plasma Glucose (test code = 197 mg/dl 90-180 WHEN TEST RESULTS FOR A1C EXCEED MPG) 14.0, THE LINEA R LIMIT OF THE INSTRUMENT, THE CALCULATED RESULT FOR THE MEAN GLUCOSE IS NOT RELIABLE. GLYCOSALATED [id number] 16:45:00 Test Item Value Reference Range Interpretation Comments Hemoglobin A1C (test 7.6 % 4.2-6.3 A code = GLYCO) Mean Plasma Glucose 193 mg/dl 90-180 WHEN ANNETTA T RESULTS FOR (test code = MPG) A1C EXCEED 14.0, THE LINEAR LIMIT OF THE INSTRUMENT, THE CALCULATED RESU LT FOR THE MEAN GLUCOS E IS NOT RELIABLE. [id number] 12:58:00 Test Item Value Reference Range Interpretation Comments Sodium (test code = 137 mmol/l 136-146 NA) Potassium (test 4.5 mmol/l 3.5-5.1 code = K) Chloride (test code 104 mmol/l 98-107 = CL) Calcium (test code 8.9 mg/dl 8.5-10.1 = CALC) CO2 (test code = 33 mmol/l 21-32 H CO2) Glucose (test code 236 mg/dl 74-106 H = GLU) BUN (test code = 11.0 mg/dl 7.0-18.0 BUN) Creatinine (test 0.9 mg/dl 0.5-1.3 code = CREA) T Protein (test 7.6 gm/dl 6.4-8.2 code = TP) Albumin (test code 3.2 gm/dl 3.4-5.0 L = ALB) A/G Ratio (test 0.7 % 1.1-2.2 L code = AGRAT) AST (SGOT) (test 12 U/L 15-37 L code = AST) ALT (SGPT) (test 17 U/L 13-61 code = ALT) Alkaline Phos (test 56 U/L 45-117 code = ALKP) Total Bilirubin 0.4 mg/dl 0.2-1.0 (test code = TBIL) Globulin (test code 4.4 gm/dl 2.3-3.5 H = GLOBU) Calcium, Corrected 9.5 mg/dl 8.4-10.2 Various f ormulas exist (test code = for corrected s jose alfredo CALCCORR) calcium results , each yielding differ ent values. This corrected resul t was based on the fo rmula: Corrected Calci um = SerumCalcium + [0.8 * ( 4 - SerumAlbu min)] EGFR if >60 Citizen [place] (test code mL/min/1.73m\\ = EGFRAA) S\\2 EGFR if Non- >60 Estimate d Glomerular [place] (test code mL/min/1.73m\\ Filtrat ion Rate (eGFR) = EGFRNA) S\\2 Reference Inter vals Decision Points for 18 years and older and average body ma ss: >= 60 Does not exc lude kidney disease. 30 - 59 Suggests modera te chronic kidney disease and indicat es the need for furthe r investigation including asses sment of proteinuria and cardiovascular factors. < 30 Usually in dicates a need for refe rral for assessment and management of c hronic kidney failure. FAX TO [phone] HAND [id number] 12:50:16FAX TO [phone] [facility]/[place])Name: TERRANCE MITCHELL : [id number] Sex: FProcedure: XR HAND 2VWSOrder Date: 09/07/2020 11:26 AMOrdering Provider: NETO Almanza HITEClinical Indication: [id number]: Pain in right [id number]: Pain of left lower legComparison: NoneFindings:There is no fracture or dislocation.Severe osteoarthrosis of the right thumbat the carpometacarpal joint.Mild osteoarthrosis of the right thumb MCP and IP joints.Mild osteoarthr osis of several DIP joints of the right hand.Articular surfaces of the right hand are otherwise normal.There are no lytic or sclerotic lesions.There is no radiopaque foreign body.There is no subcutaneous gas.Impression:1. Polyarticular osteoarthrosis of the right thumb. This is severe at thecarpometacarpal joint.2. Mild osteoarthrosis of several DIP joints of the right hand.3. Remaining articular surfaces are normal.4. No fracture or dislocation.5. No other significant findings.This final report waselectronically signed by Dr Nj Archibald MD 09/07/202012:43 PMDictated By: NJ ARCHIBALD.Date: 09/07/2020 12:43XR LEG (TIB/FIB) 2 [id number] 12:43:46FAX TO [phone] [facility]/)Name: TERRANCE MITCHELL : [id number] Sex: FProcedure: XR LEG (TIB/FIB) 2 VIEWS , leftOrder Date: 09/07/2020 11:26 AMOrderingProvider: NETO FRANZClinical Indication: [id number]: Pain in right [id number]: Pain of left lower legComparison: NoneFindings:No fracture, focal osseous destruction, or malalignment. Joint spaces arepreserved. Soft tissues are unremarkable.IMPRESSION:No acute osseous abnormality.This final report was electronically signed by Dr Venkata Adams MD 09/07/202012:37 PMDictated By: Galileo ADAMS: 09/07/2020 12:[id number] 16:41:00 Test Item Value Reference Range Interpretation Comments Sodium (test code = 139 mmol/l 137-145 NA) Potassium (test 4.3 mmol/l 3.5-5.1 code = K) Chloride (test code 103 mmol/l 98-107 = CL) Calcium (test code 9.7 mg/dl 8.5-10.1 = CALC) CO2 (test code = 33 mmol/l 21-32 H CO2) Glucose (test code 109 mg/dl 74-106 H = GLU) BUN (test code = 16.0 mg/dl 7.0-18.0 BUN) Creatinine (test 0.8 mg/dl 0.5-1.3 code = CREA) EGFR if >60 Citizen [place] (test code mL/min/1.73m\\ = EGFRAA) S\\2 EGFR if Non- >60 Estimate d Glomerular Citizen [place] (test code mL/min/1.73m\\ Filtrat ion Rate (eGFR) = EGFRNA) S\\2 Reference Inter vals Decision Points for 18 years and older and average body ma ss: >= 60 Does not exc lude kidney disease. 30 - 59 Suggests modera te chronic kidney disease and indicat es the need for furthe r investigation including asses sment of proteinuria and cardiovascular factors. < 30 Usually in dicates a need for refe rral for assessment and management of c hronic kidney failure. CBC WITH AUTO [id number] 16:00:00 Test Item Value Reference Range Interpretation Comments WBC (test code = 10.09 4.80-10.80 WBC) 10\\S\\3/ul RBC (test code = 4.55 10\\S\\6/ul 4.20-5.40 RBC) Hemoglobin (test 14.5 gm/dl 12.0-14.0 H code = HGB) Hematocrit (test 42.9 % 37.0-47.0 code = HCT) MCV (test code = 94.3 fL 81.0-99.0 MCV) MCH (test code = 31.9 pg 27.0-31.0 H MCH) MCHC (test code = 33.8 gm/dl 33.0-37.0 MCHC) RDW (test code = 13.7 % 11.5-14.5 RDWVC) Platelet (test code 207 10\\S\\3/ul 130-400 = PLT) MPV (test code = 9.9 fL 7.4-10.4 A "NOT MEASUR ED" MPV) RESULTS ARE DIS PLAYED WHEN THE INSTRU MENT HAS A SUPPRESSE D OR UNREPORTABLE RE SULT. THIS WILL MOST OFTEN HAPPEN WITH THE MPV WHEN THERE IS A N ABNORMAL PLATEL ET DISTRIBUTION DU E TO A CRITICAL LOW VA LUE OR PLATELET CLUMPI NG. THE RDW MAY BE SUPPRESSED IF T HERE ARE MULTIPLE PE AKS PRESENT ON THE RBC HISTOGRAM. IN THIS CASE, A MANUAL REVIEW OF THE SLIDE WI LL BE PERFORMED, AND RBC MORPHOLOGY WILL BE NOTED ON THE RE PORT. NE% (test code = 58.2 % 42.0-75.0 NE) LY% (test code = 32.0 % 13.0-42.0 LY) MO% (test code = 8.5 % 4.0-14.0 MO) EO% (test code = 0.8 % 1.0-5.0 L EO) BA% (test code = 0.3 % 0.0-3.0 BA) IG% (test code = 0.2 % 0.0-0.4 IG%) MRI LSPINE W/O [id number] 15:17:06"If patient is claustrophobic, contact ordering physician for additional instructions."Procedure: MRI LSPINE W/O CONTRASTOrder Date: 11/23/2019 9:49 AMOrdering Provider: FLO Vann I ndication: [id number]: Low back painComparison: Radiographs 11/22/2019Technique: Multiplanar, multisequence MR images of the lumbar spine wereobtained without contrast.Findings:Moderate L1 compression fracture deformity is again noted. There is a prominentSchmorl's node seen within the superior endplateof L1. Minimal bone marrowedema seen within the right para midline anterior inferior quadrant of [id number] body favored to be reactive endplate changes. No definite bone marrowedema pattern to suggest acute or subacute compression fracture.Remaining vertebral bodies are unremarkable in signal and morphology.Spinal cord terminates at the superior endplate of L1 and is normal in signaland morphology. Cauda equina separate appropriately.T12-L1: Trace disc bulge without stenosis.L1-L2: Circumferential disc bulge without significant facet sclerosis. No spinalcanal or foraminal stenosis.L2-L3: Trace disc bulge with mild facet arthrosis. No stenosis.L3-L4: Unremarkable.L4-L5: Diffuse disc bulge asymmetric to the left with moderate left rightsubarticular recess stenosis. Mild overall spinal canal stenosis. No foraminalstenosis.L5-S1: Mild facet arthrosis with trace disc bulge. No stenosis.Prevertebral and paravertebral soft tissues are unremarkable.Impression:1. Chronic L1 compression fracture deformity with mild reactive endplate marrowedema is favored to be secondary to degenerative disc changes. No acutefractures or subluxations.2. Lumbar spondylosis with greatest degree of stenosis at L4-L5as outlinedabove.This final report was electronically signed by Dr Kriss Quintero MD 11/23/20193:10 PMDictated By: KRISS QUINTERODate: 11/23/2019 15:10CBC WITH AUTO [id number] 05:07:00 Test Item Value Reference Range Interpretation Comments WBC (test code = 9.44 10\\S\\3/ul 4.80-10.80 WBC) RBC (test code = 4.22 10\\S\\6/ul 4.20-5.40 RBC) Hemoglobin (test 13.6 gm/dl 12.0-14.0 code = HGB) Hematocrit (test 39.3 % 37.0-47.0 code = HCT) MCV (test code = 93.1 fL 81.0-99.0 MCV) MCH (test code = 32.2 pg 27.0-31.0 H MCH) MCHC (test code = 34.6 gm/dl 33.0-37.0 MCHC) RDW (test code = 14.1 % 11.5-14.5 RDWVC) Platelet (test code 180 10\\S\\3/ul 130-400 = PLT) MPV (test code = 9.9 fL 7.4-10.4 A "NOT MEASUR ED" MPV) RESULTS ARE DIS PLAYED WHEN THE INSTRU MENT HAS A SUPPRESSE D OR UNREPORTABLE RE SULT. THIS WILL MOST OFTEN HAPPEN WITH THE MPV WHEN THERE IS A N ABNORMAL PLATEL ET DISTRIBUTION DU E TO A CRITICAL LOW VA LUE OR PLATELET CLUMPI NG. THE RDW MAY BE SUPPRESSED IF T HERE ARE MULTIPLE PE AKS PRESENT ON THE RBC HISTOGRAM. IN THIS CASE, A MANUAL REVIEW OF THE SLIDE WI LL BE PERFORMED, AND RBC MORPHOLOGY WILL BE NOTED ON THE RE PORT. NE% (test code = 72.9 % 42.0-75.0 NE) LY% (test code = 20.0 % 13.0-42.0 LY) MO% (test code = 6.8 % 4.0-14.0 MO) EO% (test code = 0.0 % 1.0-5.0 L EO) BA% (test code = 0.1 % 0.0-3.0 BA) IG% (test code = 0.2 % 0.0-0.4 IG%) [id number] 05:03:00 Test Item Value Reference Range Interpretation Comments Sodium (test code = 138 mmol/l 137-145 NA) Potassium (test 3.4 mmol/l 3.5-5.1 L code = K) Chloride (test code 104 mmol/l 98-107 = CL) Calcium (test code 9.2 mg/dl 8.5-10.1 = CALC) CO2 (test code = 29 mmol/l 21-32 CO2) Glucose (test code 167 mg/dl 74-106 H = GLU) BUN (test code = 9.0 mg/dl 7.0-18.0 BUN) Creatinine (test 0.6 mg/dl 0.5-1.3 code = CREA) EGFR if >60 Citizen [place] (test code mL/min/1.73m\\ = EGFRAA) S\\2 EGFR if Non- >60 Estimate d Glomerular Citizen [place] (test code mL/min/1.73m\\ Filtrat ion Rate (eGFR) = EGFRNA) S\\2 Reference Inter vals Decision Points for 18 years and older and average body ma ss: >= 60 Does not exc lude kidney disease. 30 - 59 Suggests modera te chronic kidney disease and indicat es the need for furthe r investigation including asses sment of proteinuria and cardiovascular factors. < 30 Usually in dicates a need for refe rral for assessment and management of c hronic kidney failure. XR LUMBAR SPINE (AP/LATERAL)2019-11-22 18:49:59Procedure: XR LUMBAR SPINE (AP/LATERAL)Order Date: 11/22/2019 5:58 PMOrdering Provider: FLO LYClinical Indication: [id number]: Low back painComparison: NoneFindings:Compression fracture deformity of L1, this is age indeterminate. Otherwise, noother fractures or subluxations.Vertebral body heights aremaintained.No significant degenerative disc changes or facet arthropathy.There is no appreciable scol iosis.There are no lytic or sclerotic lesions.The sacroiliac joints are normal.Impression:1. Age-indeterminate L1 compression fracture. Otherwise, nonacute lumbar spineseries.This final report was electronically signed by Dr Kriss Quintero MD 11/22/20196:43 PMDictated By: KRISS QUINTERODate: 020 18:[id number] 18:39:00 Test Item Value Reference Range Interpretation Comments CPK (test code = CPK) 38 U/L 26-308 DRUG SCREEN [id number] 14:42:00 Test Item Value Reference Range Interpretation Comments Amphetamines (test code NEG = AMPHET) BARBITUATES (test code = NEG CARMINA) Benzodiazepines (test NEG code = BENZO) Cocaine (test code = NEG MARLEN) Methadone (test code = NEG MTD) Opiates (test code = NEG OPIAT) PHENCYCLIDINE, PCP (test NEG The following table code = PCP) provides an int erpretive guide for the D rugs of Abuse ran on e Siemens [place] analyzer listed there in: Amphetamines < 1000 ng/ml = Negati ve Barbituates < 200 ng/ml = Negati ve Benzodiazapines < 200 ngml = Negati ve Cocaine < 300 ng/ml = Negati ve Methadone < 300 ng/ml = Negati ve Opiate < 300 ng/ml = Negati ve PCP < 25 ng/ml = Negati ve THC < 50 ng/ml = Negati ve Results equal t o or greater than e above cut-off values = Presumptive Pos itive. Confirmation of Presumptive Pos itive results are tereso ilable upon request. Cannabinoids, THC (test POS code = THC) [id number] 13:51:00 Test Item Value Reference Range Interpretation Comments Lipase (test code = LIPA) 76 U/L 73-393 URINALYSIS WITH [id number] 13:36:00 Test Item Value Reference Range Interpretation Comments Color (test code = UCOLR) YELLOW Clarity (test code = UCLAR) SL CLOUDY Glucose (test code = UGLUC) 250 NEGATIVE A Bilirubin (test code = UBILI) NEGATIVE NEGATIVE N Ketones (test code = UKET) TRACE NEGATIVE A Specific Alexander (test code = 1.010 1.005-1.030 A USPGR) Blood (test code = UBLD) TRACE-INTACT NEGATIVE A PH (test code = UPH) 7.0 4.5-8.0 A Protein (test code = UPROT) NEGATIVE NEGATIVE N Urobilinogen (test code = U 0.2 >0.2 N UROB) Nitrite (test code = UNITR) NEGATIVE NEGATIVE N Leukocyte Esterase (test code = NEGATIVE NEGATIVE N ULEUK) WBC (test code = WBCUR) 0-5 0-5 N RBC (test code = RBCUR) None Seen 0-5 A Epithial Cells (test code = U 0-10 0-10 N EPI) Bacteria (test code = UBACT) 4+ None Seen,Trace A STAT LAB FLU [id number] 13:19:00 Test Item Value Reference Range Interpretation Comments Flu A Screen (test Negative Negative N EFFECTIVE 10/03/2013 - A code = FLUA) method change h as occurred. A mo lecular method for Flu testing will replace th e current method. Both F dharmesh A and Flu B will be t ested and results will co ntinue to be listed as "N egative or Positive". Whi le this method is more specific in the detectio n of both strains, confir matory testing is avai lable upon request. ldh Flu B Screen (test Negative Negative N EFFECTIVE 10/03/2013 - A code = FLUB) method change h as occurred. A mo lecular method for Flu testing will replace th e current method. Both F dharmesh A and Flu B will be t ested and results will co ntinue to be listed as "N egative or Positive". Whi le this method is more specific in the detectio n of both strains, confir matory testing is avai lable upon request. ldh STAT LAB [id number] 13:18:00 Test Item Value Reference Range Interpretation Comments Troponin-I (test 0.01 ng/ml 0.00-0.08 The 99th Pe rcentile URL is code = TROP) 0.08 ng/mL for the Miller iStat Troponin I. The Joint Society of Cardiology/Amer [place] College of Card iology (ESC/ACC) and mulugeta iniguez National Academy of Clin ical Biochemistry St andards of Laboratory Prac tices (NACB) recommen ds that the diagnosis of AM I includes the presence of clinical history suggest frannie of Acute Coronary Syndrome (ACS) and a max imum concentration o f cardiac troponin exceed ing the 99th percentile of a normal referenc e population [upp er reference limit (URL)] on at least one oc casion during the firs t 24 hours after the clini pankaj event. ED [id number] 11:44:00 Test Item Value Reference Range Interpretation Comments Sodium (test code = 141 mmol/l 137-145 NA) Potassium (test 4.2 mmol/l 3.5-5.1 code = K) Chloride (test code 109 mmol/l 98-107 H = CL) Calcium (test code 9.1 mg/dl 8.5-10.1 = CALC) CO2 (test code = 28 mmol/l 21-32 CO2) Glucose (test code 190 mg/dl 74-106 H = GLU) BUN (test code = 11.0 mg/dl 7.0-18.0 BUN) Creatinine (test 0.7 mg/dl 0.5-1.3 code = CREA) T Protein (test 7.0 gm/dl 6.4-8.2 code = TP) Albumin (test code 3.4 gm/dl 3.4-5.0 = ALB) A/G Ratio (test 0.9 % 1.1-2.2 L code = AGRAT) AST (SGOT) (test 15 U/L 15-37 code = AST) ALT (SGPT) (test 20 U/L 13-61 code = ALT) Alkaline Phos (test 39 U/L 45-117 L code = ALKP) Total Bilirubin 0.3 mg/dl 0.2-1.0 (test code = TBIL) Globulin (test code 3.6 gm/dl 2.3-3.5 H = GLOBU) Calcium, Corrected 9.6 mg/dl 8.4-10.2 Various f ormulas exist (test code = for corrected s jose alfredo CALCCORR) calcium results , each yielding differ ent values. This corrected resul t was based on the fo rmula: Corrected Calci um = SerumCalcium + [0.8 * ( 4 - SerumAlbu min)] EGFR if >60 Citizen Of [place] (test code mL/min/1.73m\\ = EGFRAA) S\\2 EGFR if Non- >60 Estimate d Glomerular Citizen [place] (test code mL/min/1.73m\\ Filtrat ion Rate (eGFR) = EGFRNA) S\\2 Reference Inter vals Decision Points for 18 years and older and average body ma ss: >= 60 Does not exc lude kidney disease. 30 - 59 Suggests modera te chronic kidney disease and indicat es the need for furthe r investigation including asses sment of proteinuria and cardiovascular factors. < 30 Usually in dicates a need for refe rral for assessment and management of c hronic kidney failure. er 18XR CHEST AP/PA 1 [id number] 11:41:44er 18Procedure: AP View ChestOrder date: 11/22/2019 11:00 AMOrdering Provider: RAFA MURILLOUClinical Indication: [id number]: Chest painComparison: NoneFindings:Cardiomediastinal silhouette is within normal limits. Post CABG changes arenoted.The lungs are clear. No large pleural effusions or pneumothorax. Osseousstructures are nonacute.No evidence of active tuberculosis.Impression:No acute cardiopulmonaryprocess.This final report was electronically signed by Dr Kriss Quintero MD 11/22/201911:35 AMDictated By: KRISS QUINTERODate: 11/22/2019 11:35PT AND [id number] 11:40:00 Test Item Value Reference Range Interpretation Comments Protime (test code 11.1 seconds 9.5-12.1 = PT) INR (test code = 1.1 0.9-1.1 INR results are INR) intended ONLY t o monitor Oral Anticoagulant t herapy in stablized pa tients. The INR Therape utic Range is 2.0 - 3.0 Patients with a mechanical hear t, the INR Range is 2. 5 - 3.5 er [id number] 11:40:00 Test Item Value Reference Range Interpretation Comments aPTT (test code = PTT) 28.3 seconds 23.9-30.7 er 18STAT LAB [id number] 11:27:00 Test Item Value Reference Range Interpretation Comments Troponin-I (test 0.00 ng/ml 0.00-0.08 The 99th Pe rcentile URL is code = TROP) 0.08 ng/mL for the Miller iStat Troponin I. The Joint Society of Cardiology/Amer ican College of Card iology (ESC/ACC) and t National Academy of Clin ical Biochemistry St andards of Laboratory Prac tices (NACB) recommen ds that the diagnosis of AM I includes the presence of clinical history suggest frannie of Acute Coronary Syndrome (ACS) and a max imum concentration o f cardiac troponin exceed ing the 99th percentile of a normal referenc e population [upp er reference limit (URL)] on at least one oc casion during the firs t 24 hours after the clini pankaj event. er 18STAT LAB CBC WITH AUTO [id number] 11:19:00 Test Item Value Reference Range Interpretation Comments WBC (test code = WBC) 9.13 10\\S\\3/ul 4.80-10.80 RBC (test code = RBC) 3.93 10\\S\\6/ul 4.20-5.40 L Hemoglobin (test code = HGB) 12.6 gm/dl 12.0-14.0 Hematocrit (test code = HCT) 36.9 % 37.0-47.0 L MCV (test code = MCV) 93.9 fL 81.0-99.0 MCH (test code = MCH) 32.1 pg 27.0-31.0 H MCHC (test code = MCHC) 34.1 gm/dl 33.0-37.0 Platelet (test code = PLT) 181 10\\S\\3/ul 130-400 RDW (test code = RDWVC) 14.2 % 11.5-14.5 MPV (test code = MPV) 10.1 fL 7.4-10.4 A NE% (test code = NE) 85.6 % 42.0-75.0 H LY% (test code = LY) 10.5 % 13.0-42.0 L MO% (test code = MO) 3.4 % 4.0-14.0 L EO% (test code = EO) 0.2 % 1.0-3.0 L BA% (test code = BA) 0.2 % 1.0-3.0 L IG% (test code = IG%) 0.1 % 0.0-0.4 er 18
[2020-11-19] MEDS ORDERED: NA CHLORIDE 0.9% 1,000 ML ONE (06:59)
[2020-11-19] MEDS ORDERED: NS 0.9% VIAL 20 ML ONE (07:24)
[2020-11-19] MEDS ORDERED: LIDOCAINE 1% MPF 30 ML VIAL ONE (07:27)
[2020-11-19] MEDS ORDERED: FENTANYL CITR 100 MCG/2 ML ONE (07:34)
[2020-11-19] MEDS ORDERED: LIDOCAINE 1% MPF 5 ML VIAL ONE (07:34)
[2020-11-19] MEDS ORDERED: MIDAZOLAM HCL 2 MG/2 ML INJ ONE (07:34)
[2020-11-19] MEDS ORDERED: propofoL 200 MG/20 ML VIAL IV ONE (07:34)
[2020-11-19] MEDS: CIPROFLOXACIN 400mg IV 400 MG/200 ML BAG IV ONE ×2 (07:40→07:57)
[2020-11-19] MEDS: HEPARIN 5000 UNIT/ML 1 ML VIAL ONE ×2 (07:53→08:14)
[2020-11-19] MEDS ORDERED: NS 0.9% VIAL 10 ML ONE (08:04)
[2020-11-19] MEDS ORDERED: EPHEDRINE SULF 50 MG/ML VIAL ONE (08:04)
[2020-11-19] MEDS ORDERED: Mastisol Adhesive Liq ONE (08:31)
--- NOTE | 2020-11-19 08:42 | OP ---
Date of Procedure: 11/19/2020 Surgeon: Freddie Cade MD [employer] Selling Distributor: UMA Garza. Preoperative Diagnosis: Lung cancer. Postoperative Diagnosis: Lung cancer. Procedure: Placement of right IJ Port-A-Cath and interpretation of intraoperative fluoroscopy. Estimated Blood Loss: Minimal. Specimen: None. Findings: Normal anatomy. Anesthesia: MAC. Complications: None. Disposition: The patient tolerated the procedure in stable condition, taken to Recovery in good gene ral condition. Description Of Procedure: The patient was brought to the OR and placed in supine position. MAC anes thesia was begun. The patient was prepped and draped in the usual sterile fashion. Lidocaine 1% was infiltrated locally. An 18-gauge needle was used to access the right IJ vein. Guidewire was passed . Position was confirmed with fluoroscopy. 3 cm counter incision was made on the right anterior kate st. Pocket was created. Tunneling device was used to tunnel the catheter between the 2 wounds and t hen Seldinger technique was used and tip of the catheter was placed in the SVC, right atrial junction , and then catheter attached to the Port-A-Cath device. Port-A-Cath device was attached to subcutane ous tissue with 3-0 Vicryl. The port flushed with heparin and packed with heparin with good blood fl ow and then 3-0 chromic was used to close the subcutaneous tissue and skin. Sterile dressing applied . The patient was awakened and taken to Recovery in good general condition. Chest x-ray has been ordered. If okay, the patient will be discharged to home. Disposition: Home. Condition: Stable. Discharge Instructions: Resume home medications and diet. Activity as tolerated. Remove outer dres sing in 2 days. Shower. Keep wound clean and dry. Follow up in my office in 2 weeks. Call for steve ointment. [facility] up in the [facility]. Keep Steri-Strips on at all times. Tylenol No. 3 one tab let p.o. q.4 p.r.n. pain. /MODL Voice ID: [id number] Report ID: [id number]
--- NOTE | 2020-11-19 08:55 | RAD REPORT ---
EXAM DESCRIPTION: RAD - Fluoroscopy <1 Hour - 11/19/2020 8:17 am FINDINGS: There are 3 portable C-arm views obtained and submitted from a fluoroscopic assisted place ment of central vascular access catheter. No suspicious or unexpected finding. Fluoro time was 0.5 minutes. Cumulative dose was 5.08 mGy.
--- NOTE | 2020-11-19 09:24 | RAD REPORT ---
EXAM DESCRIPTION: RAD - Chest Single View - 11/19/2020 9:06 am CLINICAL HISTORY: s/p port a cath placement COMPARISON: CT chest radiation planning study November 11 TECHNIQUE: AP portable chest image was obtained 11/19/2020 9:06 am . FINDINGS: Portable chest was obtained following placement of a right-sided Port-A-Cath. Tip is in th e mid SVC. No abnormal bend or kink of the tubing. No pneumothorax. 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 Heart size is normal. Sternotomy wires are in place. Delete select IMPRESSION: Right-sided Port-A-Cath in good position. Tip is mid SVC with no unexpected finding. No pneumothorax.
[2020-11-19 09:25] VITALS: O2SAT 95
[2020-11-19] MEDS ORDERED: HYDROCODONE/APAP 7.5/325 MG TAB ONE (10:00)
[2020-11-19 10:10] VITALS: BP 105/40; TEMP 98
== END 2020-11-19 10:13 | disposition home or self-care (01) ==
LOC: OR 06:32
PROVIDERS: ATTEND Surgery
PROC: 0JH60WZ Insertion of Totally Implantable Vascular Access Device into Chest Subcutaneous Tissue and Fascia, Open Approach (ICD-10-PCS; principal; 2020-11-19 07:30)
DX: C34.90 Malignant neoplasm of unspecified part of unspecified bronchus or lung (principal)
CPT/HCPCS: 85025; 80048; 36415; 82947; 71045; 36561; U0002; J2704; J1644 ×2; J2250; J3010; J7030; J0744; C1788; 76000

== ENCOUNTER 2021-02-03 07:31 | Day surgery (SDC) | payer MEDICARE ==
[2021-02-03] MEDS ORDERED: NA CHLORIDE 0.9% 500 ML ONE (08:17)
[2021-02-03 08:35] LABS: Protime INR 1.37
[2021-02-03 09:34] VITALS: BMI 24.9
[2021-02-03] MEDS ORDERED: HEPARIN 500 UNIT/5 ML SYR IV ONE (14:15)
[2021-02-03 17:13] VITALS: BP 101/37; TEMP 97.6; O2SAT 97
[2021-02-03 17:14] LABS: Hematocrit 26.2 % (36.0-45.0); MPV 8.4 fL (7.6-11.3); RBC Red Blood Cell Count 3.05 M/uL (3.86-4.86)
[2021-02-03 21:08] LABS: Anisocytosis 1+; Blood Morphology Comment NOTED (NOT SEEN); Platelet Estimate DECR
== END 2021-02-03 17:10 | disposition home or self-care (01) ==
LOC: DS 07:31
PROVIDERS: ATTEND Internal Medicine Hematology & Oncology
DX: C34.12 Malignant neoplasm of upper lobe, left bronchus or lung (principal); D64.81 Anemia due to antineoplastic chemotherapy
CPT/HCPCS: 85025; 36415; 86900; 86850; 85610; 86901; 85730; 36430; 96523; J1642; P9016 ×2; J7050; 71046

== ENCOUNTER 2021-02-07 10:15 | Day surgery (SDC) | payer MEDICARE ==
[2021-02-07] MEDS ORDERED: HYDROCODONE/APAP 7.5/325 MG TAB ONE (11:23)
[2021-02-07] MEDS ORDERED: DIAZEPAM 5 MG TABLET ONE (12:52)
--- NOTE | 2021-02-07 13:03 | RAD REPORT ---
EXAM DESCRIPTION: US - Thoracentesis w/ US Guide - 02/07/2021 11:35 am CLINICAL HISTORY: Pleural effusion. PLEURAL EFFUSION COMPARISON: Fluoroscopy <1 Hour dated 11/19/2020 FINDINGS: Preoperative diagnosis: Left pleural effusion Post operative diagnosis: Same Conscious Sedation: None. Estimated blood loss: Minimal Specimens:A small volume of fluid was sent for requested lab studies. The patient was placed in the upright recumbent position and the left posterior chest was prepped and draped in the usual sterile fashion. 1% Lidocaine was infiltrated into the soft tissues for local a nesthesia. Under sonographic guidance, a thoracentesis needle and 6 [place]kin[place] catheter was advanced int o the left pleural space. Approximately 4-5 liters of reddish colored fluid was aspirated. Samples we re sent to pathology for requested analysis. The patient tolerated the procedure without immediate co mplication and transferred to the floor in stable condition. IMPRESSION: Successful ultrasound-guided thoracentesis as detailed.
--- NOTE | 2021-02-07 13:20 | RAD REPORT ---
EXAM DESCRIPTION: RAD - Chest Single View - 02/07/2021 1:11 pm CLINICAL HISTORY: POST THORCENTESIS Chest pain. COMPARISON: Chest Pa And Lat (2 Views) dated 02/02/2021; Chest Single View dated 11/19/2020; CHEST SING LE VIEW dated 09/16/2009; CHEST SINGLE VIEW dated 09/07/2009; Thoracentesis w/ US Guide dated 1 FINDINGS: Portable technique limits examination quality. There has been a moderate reduction in the size of the left pleural effusion. No pneumothorax is pres ent. Right sided venous catheter tip in the SVC. The heart is mildly prominent with changes of a prio r CABG. IMPRESSION: No postprocedure pneumothorax seen.
[2021-02-07 15:43] VITALS: TEMP 98; BMI 24.9
[2021-02-07 15:55] VITALS: BP 107/50; O2SAT 96
== END 2021-02-07 13:45 | disposition home or self-care (01) ==
LOC: DS 10:15
PROVIDERS: ATTEND Internal Medicine Hematology & Oncology
DX: C34.12 Malignant neoplasm of upper lobe, left bronchus or lung (principal); G89.3 Neoplasm related pain (acute) (chronic); J91.0 Malignant pleural effusion
CPT/HCPCS: 32555; 71045; 87070; 88108; 88305